=== PATIENT | female | born 1960 | race African-American/Black ===

== ENCOUNTER → 2016-11-16 | Outpatient (CLI) | payer MEDICARE, BC ==
[~2016-11-16] MED LIST: ACET250T22 PO; [UNRECOGNIZED DRUG - REMARK]
--- NOTE | 2016-11-17 02:31 | HKNOTE ---
DATE OF SERVICE: 11/16/2016 Patient is scheduled to have a right knee replacement on the . She comes in for 2 reasons, 1 to further discuss knee replacement and secondly to get a new prescription for Gary. Considerable time was spent with her discussing the knee replacement and what is involved. The patient was given my manual titled "Arthritis of the Knee Joint" which contains information conc erning the various alternatives of treatment. It includes various forms of conservative treatment, i ncluding the use of nonsteroidal anti-inflammatory medications and their dangers. Various surgical a lternatives are discussed. The technique of total knee replacement is discussed in detail, including possible complications. Included also is a section on the possible complications of blood transfusi on, a section on postoperative precautions, and an exercise program to follow at home after total kn ee replacement. The long-term care of a total knee replacement implant is also covered in detail. Lyndsey e patient was instructed to read this manual in its entirety since it is, in and of itself, a form o f informed consent. After reading this manual, the patient will make a list of further questions torres t may not have been covered adequately. The patient was further advised that this manual, although e xhaustive in nature, is only intended to supplement and complement a one-on-one discussion with me. My dietitian assistant, Neftaly, also came and spent considerable time with her dealing with her schedule. I note that she had arthroscopic surgery on the knee, which was of no help to her whatsoever. X-rays of her knee were reviewed. Remarkably, they still show some space between the surfaces of e bone. However, the findings at arthroscopic surgery showed "arthroscopic areas of all 3 compartme nts of the knee, leaving underlying subchondral bone exposed. Unstable articular cartilage of the l ateral femoral condyle in the weightbearing surface. The patellofemoral joint showed grade II to gr katheryn III degenerative changes. The medial meniscus showed degenerative fraying along its entire age. It was noted that this patient will be a candidate for knee replacement sometime in the near future ." After she had been allowed to ask all the questions she wanted, she departed and is already on the s chedule for her surgery. She will be seen at her preoperative visit. Dictated By: ROSETTA HEADLEY/ELOISE Conf#: [id number] [facility]#: [id number]
== END | disposition home or self-care (01) ==
LOC: HKI 13:40
DX: Z01.818 Encounter for other preprocedural examination (principal)
CPT/HCPCS: G0463

== ENCOUNTER 2016-12-07 07:00 | Inpatient (IN) | payer MEDICARE, BC ==
[~2016-12-07] VITALS: Ht 157.5 cm; Wt 109.8 kg
[2016-12-14 14:14] VITALS: BMI 39.1
[2016-12-15] VITALS (25 sets, daily range): BP systolic 127–146; BP diastolic 60–76; PULSE 60–96; RESP 11–20; Ht 157.5 cm; Wt 109.8 kg
--- NOTE | 2016-12-15 03:26 | PREOPHP ---
DATE OF ADMISSION: 12/15/2016 CHIEF COMPLAINT: Pain in the right knee, duration several years. HISTORY OF PRESENT ILLNESS: This patient had pain in her right knee for many years. In February of 2012 she had arthroscopic surgery for torn right medial meniscus. For a while she had some relief of he r pain, but then her pain recurred. The patient was referred to Dr. Valladares several weeks ago af ter an MRI revealed tearing of both the medial and lateral menisci of the right knee. Dr. Sue dickerson felt that the patient needed a right total knee replacement. The patient is accordingly being adm itted at this time for total right knee replacement. MRI of the knee performed 06/03/2016 revealed ____ tearing of the body and posterior horn of the medial meniscus and also showed low grade chondra l fissuring at the inner aspect of the lateral tibial plateau and the central trochlea. The patient is accordingly being admitted at this time for total right knee replacement by Dr. Valladares. FAMILY HISTORY: Mother is alive at age 88. Mother had breast cancer. She had some kidney troublin g and is on dialysis. Father at age 86 from cancer of the prostate. The patient had 10 brothe rs; 7 are alive and well, 3 , 1 of a cerebral aneurysm, another of unknown causes, but he had seizures and alcoholism. A third of a heart attack. The patient has 3 sisters; 2 are alive and well, 1 is . The one who , of liver cancer. Family history of carcinoma in the family. Mother had breast cancer. Father had prostate cancer. Sister had liver cancer. One b dimitrioser had cancer of his ____. No family history of tuberculosis. No family history of diabetes me llitus. SOCIAL HISTORY: The patient does not smoke. She does not use alcoholic beverages. SERIOUS ACCIDENTS: In 2010, she fell down at work when she was hit by a sliding door on her right w rist. She sustained a sprain of the right wrist and injured her lumbar spine. SERIOUS ILLNESSES: Sleep apnea for many years. PREVIOUS SURGERIES: Hammertoe surgery for correction of the right fifth toe hammertoe. In 1979 she had a benign tumor removed from her right breast. In February of 2012, she had arthroscopic surgery on her right knee for a torn medial meniscus. CURRENT MEDICATIONS: List is as follows: She takes Vitamin D spray, 5 sprays daily. No other medi cation on a regular basis. ALLERGIES: NO KNOWN ALLERGIES. REVIEW OF SYSTEMS: CARDIOVASCULAR: No history of hypertension. No history of congenital heart disease, rheumatic feve r, or other heart disease, arrhythmia, coronary insufficiency, myocardial infarction, or angina pect jann. RESPIRATORY: No history of asthma, tuberculosis, or pneumonia. GASTROINTESTINAL: No history of peptic ulcer disease, cholecystitis, hepatitis, jaundice, pancreati tis, ileitis, colitis, hematemesis, or melena. MUSCULOSKELETAL: Pain in her right knee for many years. The patient had arthroscopic surgery on he r right knee for torn right medial meniscus in February of 2012. NEUROLOGICAL: No history of epilepsy, convulsion, or CVA. No history of emotional disorder. GENITOURINARY: No history of cystitis, glomerulonephritis, pyelonephritis, or other genital tract d isorder. PHYSICAL EXAMINATION: GENERAL: The patient is an obese, terra female who does not appear acutely or chronically ill. VITAL SIGNS: Blood pressure 134/82, pulse 84, respirations 16, temperature 98.6. SKIN: No evidence of dermatitis. NECK: Supple. Thyroid is not palpable. EYES: PERRLA, EOM normal. Disks flat. Peripheral and forward vision grossly intact. EARS, NOSE, AND THROAT: Clear. HEART: PMI left fifth interspace, left midclavicular line. No murmurs, no thrills, no bruits. A2 is greater than P2. No distended jugular veins. No ankle edema. Hepatojugular reflux is not prese nt. LUNGS: Clear to A and P. ABDOMEN: Liver, kidneys, spleen are not palpable by. Bowel sounds are normal. There are no intraa bdominal masses or bruits. GENITOURINARY: Normal external female genitalia. PELVIC: Deferred. The patient had pelvic examination 6 months ago with normal result. RECTAL: Deferred for the same reason. MUSCULOSKELETAL: Pain and swelling of the right knee with decreased motion. There was crepitus on flexion of the right knee. NEUROLOGIC: DTRs are normal and equal bilaterally including biceps, triceps, wrists, knees, and ank les. Plantars are flexor, and no pathological reflexes are present. The patient is well oriented a s to time, place, and person. PERIPHERAL VASCULAR: No carotid or subclavian artery bruits. Femoral and dorsal pedal pulses are n ormal and equal bilaterally. IMPRESSION: Torn right medial meniscus, osteoarthritis, history of anemia, elevated sedimentation r ate elevated creatinine urinary stress incontinence. Dictated By: FLORENTINO TAYLOR/ELOISE Conf#: [id number] DID#: [id number]
[2016-12-15] MEDS ORDERED: DEXAMETHASONE 4 MG/ML 1 ML INJ IV ONE (06:00)
[2016-12-15] MEDS ORDERED: LACTATED RINGER'S 1,000 ML IV* SCH (06:00)
[2016-12-15] MEDS ORDERED: CELECOXIB 200 MG CAP PO ONE (06:00)
[2016-12-15] MEDS ORDERED: ONDANSETRON 4 MG INJ IV ONE (06:00)
[2016-12-15] MEDS ORDERED: SOD CHLORIDE 0.9% IVPB ONE ×3 (06:00→18:00)
[2016-12-15] MEDS ORDERED: VANCOMYCIN 1 GM (PMX) 250 ML IVPB ONE (06:00)
[2016-12-15] MEDS ORDERED: LANSOPRAZOLE 30 MG CAP PO ONE (06:00)
[2016-12-15] MEDS ORDERED: TRANEXAMIC ACID IVPB ONE ×3 (06:00→18:00)
[2016-12-15] MEDS ORDERED: oxyCODONE (CR) 10 MG TAB [oxyCONTIN] PO ONE (06:00)
[2016-12-15] MEDS ORDERED: ACETAMINOPHEN 1000MG/100ML IV 100 ML IVPB ONE (06:00)
[2016-12-15] MEDS ORDERED: NEOSTIGMINE 3 MG/3 ML SYRINGE ONE (06:19)
[2016-12-15] MEDS ORDERED: PROPOFOL 20 ML ONE (06:19)
[2016-12-15] MEDS ORDERED: MIDAZOLAM 1 MG/ML 2 ML INJ ONE (06:19)
[2016-12-15] MEDS ORDERED: FENTAnyl 50 MCG/ML VIAL ONE ×2 (06:19→10:11)
[2016-12-15] MEDS ORDERED: GLYCOPYRROLATE 0.4 MG INJ ONE (06:19)
[2016-12-15] MEDS ORDERED: LIDOCAINE 2% (SDV) 5 ML INJ ONE (06:19)
[2016-12-15] MEDS ORDERED: ROCURONIUM 50 MG INJ ONE (06:19)
[2016-12-15] MEDS ORDERED: DEXAMETHASONE 4 MG/ML 1 ML INJ ONE (06:26)
[2016-12-15] MEDS ORDERED: ONDANSETRON 4 MG INJ ONE (06:26)
[2016-12-15] MEDS ORDERED: LIDOCAINE 2%/EPI 30 ML INJ ONE (06:27)
[2016-12-15] MEDS ORDERED: BACITRACIN 50000 UNITS INJ ONE (06:39)
[2016-12-15] MEDS ORDERED: ROPIVACAINE 0.2% 100 ML ONE (06:52)
[2016-12-15] MEDS ORDERED: BUPIVACAINE 0.25%/EPI (SDV) 30 ML INJ ONE (06:52)
[2016-12-15] MEDS ORDERED: METHYLENE BLUE 10 MG/ML VIAL ONE (06:52)
[2016-12-15] MEDS ORDERED: POLYMYXIN B 500000 UNIT INJ ONE (06:52)
--- NOTE | 2016-12-15 06:52 | HPN ---
Date/Time of Note Date/Time of Note DATE: 12/15/16 TIME: 06:52 Interval H&P Admission Note Pt. seen H&P reviewed: No system changes YANI BENITEZ PA-C Dec 15, 2016 06:52
[2016-12-15] MEDS ORDERED: VANCOMYCIN 1 GM INJ ONE (06:53)
[2016-12-15] MEDS ORDERED: TOBRAMYCIN 1.2 GM POWDER ONE (06:53)
[2016-12-15] MEDS ORDERED: EPHEDrine SULFATE 50 MG/5 ML SYG IV PRN (07:00)
[2016-12-15] MEDS ORDERED: SUCCINYLCHOLINE CHLORIDE 100 MG/5 ML SYG IV ONE (07:00)
[2016-12-15] MEDS ORDERED: FENTAnyl 50 MCG/ML VIAL IV PRN ×2 (07:00)
[2016-12-15] MEDS ORDERED: morphine (1 MG/ML) 10ML SYRINGE IV PRN ×3 (07:00)
[2016-12-15] MEDS ORDERED: MIDAZOLAM 1 MG/ML 2 ML INJ IV PRN (07:00)
[2016-12-15] MEDS ORDERED: ATROPINE 1 MG/10 ML SYRINGE IV PRN (07:00)
[2016-12-15] MEDS ORDERED: DIPHENHYDRAMINE 50 MG INJ IV PRN (07:00)
[2016-12-15] MEDS ORDERED: LABETALOL HCL 20MG INJ IV PRN (07:00)
[2016-12-15] MEDS ORDERED: hydrALAzine 20 MG INJ IV PRN (07:00)
[2016-12-15] MEDS ORDERED: OXYCODONE/ACETAMINOPHEN (5/325) TAB PO PRN ×2 (07:00)
[2016-12-15] MEDS ORDERED: ONDANSETRON 4 MG INJ IV PRN (07:00)
[2016-12-15] MEDS ORDERED: HYDROmorphONE (0.2 MG/ML) 10ML SYG IV PRN ×3 (07:00)
[2016-12-15] MEDS ORDERED: MEPERIDINE 25 MG INJ IV PRN (07:00)
[2016-12-15] MEDS ORDERED: SOD CHLORIDE 0.9% IRR SCH ×2 (07:30)
[2016-12-15] MEDS ORDERED: TRANEXAMIC ACID IRR SCH ×2 (07:30)
[2016-12-15] MEDS ORDERED: hydrALAzine 20 MG INJ ONE (07:55)
[2016-12-15] MEDS ORDERED: LABETALOL HCL 20MG INJ ONE (07:57)
[2016-12-15] MEDS ORDERED: ROPIVACAINE 0.2% 100ML BAG INJ ONE (09:04)
--- NOTE | 2016-12-15 09:28 | RADRPT ---
PROCEDURE: Right knee x-ray. CLINICAL INDICATION: Intraoperative localization for knee replacement procedure. TECHNIQUE: 3 images obtained intraoperatively during a knee prosthesis placement procedure. COMPARISON: None available FINDINGS: 3 images were obtained intraoperatively for localization during a knee prosthesis placement procedur e. The procedure was performed by Dr. Valladares; . Images were obtained for localization intraope ratively. 7.8 seconds of fluoroscopy time was used. Surgical hardware is seen in place. No fracture is identified. IMPRESSION: 3 images and 728 seconds of fluoroscopy were used during a right total knee replacement Surgical hardware is in place. No fracture identified RPTAT:HGDB .Tex Day MD, Date Time Electronically viewed and signed by .Tex Day MD, on 12/15/2016 09:28 .B/
[2016-12-15] MEDS ORDERED: FUROSEMIDE 20 MG INJ ONE (11:05)
[2016-12-15] MEDS ORDERED: FLUMAZENIL 0.5 MG INJ ONE (11:54)
[2016-12-15] MEDS ORDERED: ZOLPIDEM 5 MG TAB PO PRN (12:30)
[2016-12-15] MEDS ORDERED: oxyCODONE 5 MG TAB PO PRN ×3 (12:30)
[2016-12-15] MEDS ORDERED: NALOXONE (0.4 MG/ML) INJ IV PRN (12:30)
[2016-12-15] MEDS ORDERED: SENNA/DOCUSATE NA (8.6MG/50MG) TAB PO PRN (12:30)
[2016-12-15] MEDS ORDERED: DOCUSATE SODIUM 100 MG CAP PO ONE (12:30)
[2016-12-15] MEDS ORDERED: BISACODYL 10 MG SUPP PR PRN (12:30)
[2016-12-15] MEDS ORDERED: BETHANECHOL 25 MG TAB PO PRN (12:30)
[2016-12-15] MEDS ORDERED: MAGNESIUM HYDROXIDE 30ML CUP PO PRN (12:30)
[2016-12-15] MEDS ORDERED: DIPHENHYDRAMINE 50 MG INJ IM PRN (12:30)
[2016-12-15] MEDS ORDERED: MEPERIDINE 10 MG/ML 30 ML PCA IV PRN (12:30)
[2016-12-15] MEDS ORDERED: COUMADIN NOTE XX SCH (12:30)
[2016-12-15] MEDS ORDERED: HYDROmorphONE 0.2 MG/ML PCA IV PRN (12:30)
[2016-12-15] MEDS ORDERED: NA PHOSPHATE/BIPHOS 133 ML ENEMA PR PRN (12:30)
[2016-12-15] MEDS ORDERED: ASPIRIN (EC) 325 MG TAB PO ONE (12:30)
[2016-12-15] MEDS: ACETAMINOPHEN 1000MG/100ML IV 100 ML IVPB SCH ×2 (12:38→20:33)
[2016-12-15] MEDS: CEFAZOLIN 1 GM/50 ML (PMX) 50 ML IVPB SCH ×2 (12:39→20:46)
--- NOTE | 2016-12-15 12:43 | RADRPT ---
PROCEDURE: Right knee x-ray. CLINICAL INDICATION: Intraoperative localization for knee replacement procedure. TECHNIQUE: 2 lateral images obtained intraoperatively during a knee prosthesis placement procedure . COMPARISON: None available FINDINGS: To the lateral images obtained intraoperatively for localization during a knee prosthesis placement procedure. The procedure was performed by Dr. Valladares; images were obtained for localization int raoperatively. Surgical hardware is seen in place. IMPRESSION: 2 lateral images obtained intraoperatively for localization during total knee replacement. Surgical hardware in place. No fracture identified RPTAT:HGDB .Tex Day MD, MD Date Time Electronically viewed and signed by .Tex Day MD, on 12/15/2016 12:42 .B/
--- NOTE | 2016-12-15 12:51 | RADRPT ---
PROCEDURE: XR right knee. CLINICAL INDICATION: Knee replacement. TECHNIQUE: AP and lateral views are available for review. COMPARISON: No comparison available FINDINGS: There is a postoperative constrained total knee replacement. There is no evidence of loosening of th e prosthesis. The osseous structures are normal in mineralization, architecture and alignment No acu te fracture or dislocation is seen.No osseous lesions are identified. There are postoperative soft tissue changes. [address] . IMPRESSION: Unremarkable postoperative constrained total knee replacement. Postoperative soft tissue changes RPTAT: HGDB .Tex Day MD, MD Date Time Electronically viewed and signed by .Tex Day MD, MD on 12/15/2016 12:50 .B/
--- NOTE | 2016-12-15 12:59 | OPR ---
DATE OF OPERATION: 12/15/2016 SURGEON: Martin Valladares MD RAW HIDE TRIMMER: ARMANDO Rockwell ANESTHESIOLOGIST: Dr. Wu PREOPERATIVE DIAGNOSIS: Exceedingly severe degenerative osteoarthritis of the right knee. POSTOPERATIVE DIAGNOSIS: Exceedingly severe degenerative osteoarthritis of the right knee. OPERATION PERFORMED: Total knee replacement (arthroplasty of the knee, condylar plateau medial and lateral compartments with patella resurfacing, CPT 03677). FINDINGS AT SURGERY: The patient was found to have extremely severe arthritis affecting all 3 waylon rtments of the knee, but most severely the medial and lateral compartments. The patellofemoral comp artment was not quite as severely affected. There was no normal appearing articular cartilage in e knee. JUSTIFICATION FOR SURGERY: The knee was found to have end-stage osteoarthritis. The patient is a v andrei active 56-year-old female whose lifestyle is markedly affected by the arthritic knee. An extens jami course of conservative care has been tried prior to embarking on the knee replacement operation. There can be no reasonable expectation that any further conservative treatment will make any impro vement to this patient's pain level and lifestyle. The risks and complications of the surgery were discussed with the patient at the preoperative visit as well as the risks and possible complications of blood transfusion using hospital blood. The patient is agreeable to using hospital blood if nee ded. DESCRIPTION OF PROCEDURE: The patient was given intravenous antibiotics 1 hour prior to surgery. A n epidural anesthetic was initiated in the ICU holding area. The patient was taken to the operating room and given a light general anesthetic. The leg, foot, and ankle were prepared and draped in e usual sterile fashion. The center of the ankle was marked at the midpoint between the 2 malleoli with a sterile marking pen. A tourniquet around the thigh was inflated to 300 mmHg after the leg lyon d been exsanguinated using an Esmarch bandage. The tourniquet was inflated at the initiation of pro cedure for a short period and was then again reinflated at the time of cementing the components part s. The total tourniquet time was 56 minutes. The tourniquet was intermittently inflated. The pres sure had to be raised to 300, and at times to 350 because of the thickness of her thigh. The patien t is markedly obese. A longitudinal incision was made over the anterior aspect of the knee. The incision extended from t he tibial tubercle to a point just above the patella. The medial capsule was exposed by sharp and b rory dissection, and was incised 1/4 inch medial to the patella. A marking stitch was set on each s lucrecia of the incision at the midpoint of the capsule so as to enable accurate reapproximation at the e nd of the operation. A vastus split was made in the vastus medialis extending from the superior cherise e of the patella for approximately 5 cm between the line with the muscle fibers. The ends of the mu scle split at the patella were marked with a marking stitch on each side for later accurate reapprox imation. The patella was reflected laterally and osteophytes around the rim of the patella were rem adán. Osteophytes along the lateral femoral condyle were removed so as to facilitate lateral reflec tion of the patella. Posteromedial osteophytes were removed on the lateral side as well, so as to f ree up the lateral collateral ligament. Medial femoral osteophytes and posteromedial femoral osteop hytes were also removed at this time. This allowed for the knee to be brought into a more normal al ignment. A segment of bone was cut from the articular surface of the patella using a caliper to det ermine the exact thickness to be removed. The remaining thickness of the patella was 17 mm. The kn ee was flexed, and the patella was displaced laterally without eversion. Osteophytes in the femoral notch were removed. The remnants of the medial and lateral menisci were excised and the cruciate l igaments were excised. The medial collateral ligament was elevated as an osteo-periosteal flap from the proximal tibia. The distal end of the medial collateral ligament remained attached to the tibi a throughout the operation. The tibia was retracted forward with Hohmann retractor, inserted fruit shipper ior to the midpoint of the proximal tibia. The tibial jig was set in place in such a way as to alig n longitudinally with the anterior tibial spine, with the junction of the middle and medial 2/3 of t he patella tendon, and with the posterior intercondylar eminence of the tibia. An AP and lateral x- ray was obtained with the alignment jig in place. This showed that the alignment was satisfactory a fter some slight adjustments were made. The posterior slope of the tibia was set at 6 degrees. The tibial cutting block was attached to the proximal tibia with 2 Steinmann pins. An external alignme nt josé was placed on the cutting block to confirm the alignment of the cutting block. An Joshua Wing feeler gauge was now placed on the superior aspect of the cutting block to further confirm the post erior slope of the tibia and the depth of the cut to be made. An oscillating saw was used to remove an appropriate amount of bone from the proximal tibia with the healthy side being used to measure t he cutting depth. The lateral femoral condyle of the distal femur was measured to determine the ling ropriate size for the femoral component. The anterior condyle of the femur was partially removed wi th a rongeur. A medium-sized cutting block was attached to the distal femur with 2 Steinmann pins t hrough the pin holes in the block. The external alignment jig of this cutting block was lined up wi th the anterior surface of the femur and a central intercondylar hole for the intramedullary josé was drilled through the hole in the alignment block. The block was removed. A long Waterpik nozzle wa s used to flush fat from the intramedullary canal. The appropriately sized cutting block was now at tached to the femur by means of an intramedullary josé. The linking guide was inserted into the slot in the base of the femoral cutting block with the knee set at 90 degrees of flexion and with the li nking guide set flush with the proximal tibial cut in order to set the appropriate rotational alignm ent on the femoral cutting block. Ligament balance was checked at this point and was found to be ve ry satisfactory. Once the rotational alignment had been determined, and the ligaments found to be b alanced, the femoral cutting block was secured to the distal femur with 2 Steinmann pins. The anter ior and posterior cuts of the distal femur were made off the femoral cutting block. The cutting blo ck was removed and a spacer block was used to measure the flexion gap which was found to be 12.5 mm. The same spacer block size without the femoral element was used with the leg in extension to determi ne the amount of distal femur to be removed in the transverse plane. A ____-degree distal cutting b lock was now set on the femoral intramedullary josé, and the josé was inserted into the intramedullary canal. The appropriate amount of bone to be removed was determined. The femoral cutting block was pinned to the anterior surface of the femur with 2 Steinmann pins. The appropriate amount of bone was resected off the distal femur to give an extension gap equal to the thickness of the flexion gap . The cut needed to be repeated after initial cut in order to produce an extension gap the same siz e as the flexion gap. By using the appropriate cutting blocks, the rest of the femoral cuts were made. The femoral trial component was installed and was found to fit perfectly. The femoral trial component was removed. T he proximal tibia was sized, and the appropriate tibial tray selected. The central fixation hole in the tibia was made using the tibial tray template and the appropriate instruments. The femoral and tibial trials and the trial tibial insert were installed, and the patella was prepared to accept th e 2 mm patellar trial. The trial components were all removed. The tourniquet was inflated. Soft t issues around the knee, especially the posterior capsule, were injected with a mixture of Naropin, T oradol, morphine, and clonidine. The cut surfaces of the bones were cleaned with pulsatile Water Je t lavage and thoroughly dried. Sclerotic bone surfaces were drilled with a 1/8-inch drill. The tib ial trial component was installed with methyl methacrylate cement followed by the femoral component and finally the patellar component. Cement was used on all 3 components. The cement was finger pac ked into the cut surfaces of the bone and pressurized with a rubber dam in order to get good interdi gitation of the cement into the bone. A lateral x-ray of the knee was obtained while the cement was hardening with the anticipated appropriate trial spacer in place, which was 12.5 mm. However, the x -ray showed that the knee was in slight hypertension. Once the cement was hard, we installed the 15 mm trial, which seemed to give the appropriate amount of extension and improved the amount of tensi on in all the ligaments and had good range of motion. The cut edges of the medial capsule were held together at the midpoint with a towel clip, and the knee was put through a full range of motion. T he patella was found to track satisfactorily. A lateral release was not required. At this point, t he patella was found to track very well in the patellar groove of the femoral component. The knee was frequently irrigated with normal saline containing antibiotics with pulsatile lavage th roughout the entire operation as a prophylactic measure against infection. Once the cement was hard , the tourniquet was released. Bleeding points were cauterized. The total tourniquet time was 56 m inutes. The patient's vital signs remained stable throughout the operation. The permanent rotating bearing was installed. Superficial and deep Hemovac drains were set in place . The wound was closed using interrupted Vicryl on the capsule with FiberWire used at strategic poi nts such as the attachment of the distal ends of the vastus medialis at the split, and the tibial te ndon was also attached to the osteo-periosteal flap with FiberWire. The rest of the medial capsule was closed with interrupted Vicryl. A subcuticular stitch was inserted and alexandr were used on the skin. The usual sterile dressings were applied. A Roland-Chandler compression dressing was applied a fter a sterile cooling pad had been set in place against the deep tissues by sterile cast padding. The patient's condition at the end of the procedure was satisfactory. Vital signs remained stable t hroughout the operation. The patient returned to the recovery room in stable condition. X-rays wer e obtained in the recovery room. Calf pumps were applied to both legs in the operating room. There were no problems or complications as far as we know. The sponge and instrument counts were correct . COMPONENT INFORMATION: KNEE IMPLANT TYPE: LCS. FEMORAL COMPONENT SIZE: Medium. TIBIAL COMPONENT SIZE: 2.5 PATELLAR COMPONENT SIZE: 32 mm dome. TIBIAL INSERT: 15 mm posterior stabilized mobile bearing. 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 TOTAL TOURNIQUET TIME: 56 minutes. TOTAL BLOOD LOSS: Possibly 150 to 250 mL. Dictated By: MARTIN HEADLEY/ELOISE Conf#: [id number] DID#: [id number]
[2016-12-15] MEDS ORDERED: KNEE PAIN COCKTAIL VANCO INJ SCH ×6 (15:00)
[2016-12-15] MEDS: ONDANSETRON 4 MG INJ IV SCH ×2 (16:02→18:04)
[2016-12-15] MEDS: DEXTROSE 5%-LR 1,000 ML IV SCH (16:02)
[2016-12-16] MEDS: ONDANSETRON 4 MG INJ IV SCH ×2 (00:20→06:28)
[2016-12-16 00:28] VITALS: BP 130/62; RESP 20
[2016-12-16] MEDS: DEXTROSE 5%-LR 1,000 ML IV SCH ×2 (00:46→13:16)
--- NOTE | 2016-12-16 02:16 | PN ---
DATE: 12/15/2016 SUBJECTIVE: The patient had a total right knee replacement today. The patient appears to be comfor table. OBJECTIVE: GENERAL: She is awake, oriented, and cooperative. LUNGS: Clear to A and P. HEART: Normal sinus rhythm. ABDOMEN: Liver, kidneys, spleen are not palpable. Bowel sounds are normal. The patient has not lyon d a bowel movement nor has she had flatus today yet. EXTREMITIES: No ankle edema on the left foot. The right knee has been bandaged. The dressings are dry. However, there are 2 drains, which are draining some blood. Feet are warm and dry bilaterall y. The patient moves her toes well bilaterally. LABORATORY DATA: Done preoperatively revealed slight anemia with hemoglobin of 11.2, hematocrit of 34.7%. Sed rate was elevated at 87 mm per hour. Albumin was 4 g/dL and globulin was 4.1 g/dL. Tri glycerides were slightly elevated at 173. ASSESSMENT AND PLAN: The patient doing well. To get a CBC and a basic metabolic panel in the [facility]. We will also order a serum protein electrophoresis for tomorrow. Dictated By: FLORENTINO JAVED MD WR/NTS Conf#: [id number] DID#: [id number] CC: ROSETTA MOY MD;*End*
[2016-12-16] MEDS: ACETAMINOPHEN 1000MG/100ML IV 100 ML IVPB SCH ×3 (04:26→20:38)
[2016-12-16 04:33] VITALS: BP 130/59; PULSE 80; RESP 18
[2016-12-16] MEDS: CEFAZOLIN 1 GM/50 ML (PMX) 50 ML IVPB SCH (05:26)
[2016-12-16 05:33] LABS: ADD SCAN DIFF NO
[2016-12-16 05:44] LABS: BASOPHILS % 0.1 % (0.0-2.0); HEMATOCRIT 28.3 % (37.0-47.0); LYMPHOCYTES % 7.7 % (15.0-51.0); MEAN CORPUSCULAR HEMOGLOBIN 28.1 pg (29.0-33.0); MEAN CORPUSCULAR HGB CONC 31.8 g/dl (32.0-37.0); MEAN CORPUSCULAR VOLUME 88.4 fl (82.0-101.0); MONOCYTE # 0.8 10^3/ul (0.3-0.9); MONOCYTES % 6.5 % (0.0-11.0); NEUTROPHIL # 10.7 10^3/ul (1.6-7.5); NEUTROPHILS % 85.3 % (39.0-77.0); PLATELET COUNT 206 10^3/UL (140-415); RED CELL DISTRIBUTION WIDTH 13.3 % (11.5-14.5); WHITE BLOOD COUNT 12.5 10^3/ul (4.8-10.8)
[2016-12-16] MEDS ORDERED: KETOROLAC 15 MG INJ INJ PRN (06:00)
[2016-12-16] MEDS ORDERED: BUPIVACAINE 0.25%/EPI (SDV) 30 ML INJ INJ PRN (06:00)
[2016-12-16 06:17] LABS: POTASSIUM 4.4 mmol/L (3.5-5.1)
[2016-12-16 06:20] LABS: CREATININE 0.85 mg/dl (0.44-1.00)
[2016-12-16 06:21] LABS: CALCIUM 8.8 mg/dl (8.4-10.2)
[2016-12-16] MEDS: DEXAMETHASONE 4 MG/ML 1 ML INJ IV SCH (06:28)
--- NOTE | 2016-12-16 08:11 | PN ---
Date/Time of Note Date/Time of Note DATE: 12/16/16 TIME: 08:08 Assessment/Plan VTE Prophylaxis VTE Prophylaxis Intervention: ambulation, SCD's, other Lines/Catheters IV Catheter Type (from Nrsg): Peripheral IV Shea in Place (from Nrsg): Yes Assessment/Plan Assessment/Plan -Hemovac Removed Today. 400 cc output -Pain Cocktail Given -Pain Meds as needed -Dress change performed today -OOB with PT -ASA/SCDs for DVT Prophylaxis -Continue monitoring with Internal Medicine -Patient Stable Subjective 24 Hr Interval Summary 56-year-old female postop day 1 status post right total knee replacement. Denies any pain complaints. Patient was up and walking with physical therapy yesterday. Assisted ambulation with front wheeled walker. Denies any calf pain , shortness of breath or chest pain. Patient doing well. Constitutional: no complaints Pain Control: well controlled Exam/Review of Systems Vital Signs Vitals Vital Signs Date Time Temp Pulse Resp B/P Pulse Ox O2 Delivery O2 Flow Rate FiO2 12/16/16 04:33 98.4 80 18 130/59 99 Room Air Intake and Output 12/15/16 12/15/16 12/16/16 15:00 23:00 07:00 Intake Total 652 ml 1310 ml Output Total 365 ml 620 ml 1160 ml Balance -365 ml 32 ml 150 ml Exam Free Text/Dictation -Hemovac: Intact -Pain Cocktail Drains: Intact -Incision: Clean, Dry and Intact without any redness or drainage -5/5 Tibialis Anterior, EHL Gastrocnemius/Soleus and Peroneals -5 lag from full extension and 80 active flexion. -Normal Sensation -Palpable DP/PT, Capillary Refill <2 secs -No Distal Edema -Negative Nikki Sign/No calf pain -Toes Freely Movable Results Result Diagram: 12/16/16 0450 12/16/16 0450 YANI BENITEZ PA-C Dec 16, 2016 08:10
--- NOTE | 2016-12-16 08:13 | PDOCDIS ---
Discharge Instructions DIAGNOSIS Discharge Diagnosis: Status post right total knee replacement CONDITION Patient Condition: Stable HOME CARE INSTRUCTIONS: Diet Instructions: Regular ACTIVITY: Activity Restrictions: Slowly Increase Activity Rest between Activity Avoid heavy lifting No Sexual Activity Do not Drive Do not operate Machinery Avoid Heavy Housework Keep Limb Elevated Weight Bearing (As tolerated and possibly with front wheeled walker if needed.) Bathing Restrictions: Shower (With Tegaderm dressing. Apply Tegaderm dressing prior to shower, make sure leg is completely dry before removing. Apply new Tegaderm each day until alexandr are removed around 10 days postop.) FOLLOW UP/APPOINTMENTS Appointments January 05, 2017 at 2:15PM YANI BENITEZ PA-C Dec 16, 2016 08:13
--- NOTE | 2016-12-16 08:16 | DS ---
Date/Time of Note Date/Time of Note DATE: 12/16/16 TIME: 08:14 Discharge Summary Admission/Discharge Info Admit Date/Time Dec 15, 2016 at 05:09 Discharge Date/Time December 17, 2016 Final Diagnosis Status post right total knee replacement. Patient Condition: Stable Hospital Course On the day of admission, the patient underwent right total knee replacement Intraoperative complications: None Postoperative complications: None The patient was given prophylactic antibiotics and anticoagulants. On the day of surgery and first postoperative day patient was started on gait training and was taught usual restrictions following knee replacement Suction drain removed on the first postoperative day and the dressings were changed. The wound was found to be clean and healing well. There was no sign of infection. Pain cocktail given. On the second postoperative day, patient continued with inpatient PT. Dressings were changed. Wound was found to be clean and healing well. No signs of infection. Pain cocktail given. On the day of discharge, the wound was clean and healing well; there was no sign of infection. The dressings were changed. Discharge Temperature: 98.2 Discharge White Blood Cell Count: 10.6 Discharge Hemoglobin: 9.2 The patient was discharged home with home health. Arrangements were made for visiting nurses and home health/physical therapy. The patient will be seen in office at scheduled postoperative evaluation date given on their preoperative exam which is January 05 at 2:15 PM. Should patient complain of any problems prior to scheduled postoperative evaluation date, they may call into outpatient clinic to determine if they need to be scheduled at sooner appointment to be seen immediately if needed. Discharge medications: As per medication reconciliation form Diet: Same as preadmission diet. This is Yani Deleon PA-C dictating discharge summary for Dr. Martin Valladares. Home Meds Reported Medications Acetazolamide* (Acetazolamide*) 250 Mg Tablet, 250 MG PO QID, #90 TAB 08/25/16 [meds for blister] No Conflict Check 03/10/15 Follow-up Plan January 05 2017 at 2:15 PM Pending Labs Laboratory Tests Test 12/16/16 04:50 Anion Gap 12 (8-16) Basophils # 0.010^3/ul (0.0-0.1) Basophils % 0.1% (0.0-2.0) Blood Urea Nitrogen 12mg/dl (7-20) Calcium Level 8.8mg/dl (8.4-10.2) Carbon Dioxide Level 30mmol/L (21-31) Chloride Level 105mmol/L (97-110) Creatinine 0.85mg/dl (0.44-1.00) Eosinophils # 0.010^3/ul (0.0-0.5) Eosinophils % 0.0% (0.0-7.0) Glucose Level 115mg/dl (70-220) Hematocrit 28.3% (37.0-47.0) Hemoglobin 9.0g/dl (12.0-16.0) Lymphocytes # 1.010^3/ul (0.8-2.9) Lymphocytes % 7.7% (15.0-51.0) Mean Corpuscular Hemoglobin 28.1pg (29.0-33.0) Mean Corpuscular Hemoglobin Concent 31.8g/dl (32.0-37.0) Mean Corpuscular Volume 88.4fl (82.0-101.0) Mean Platelet Volume 10.0fl (7.4-10.4) Monocytes # 0.810^3/ul (0.3-0.9) Monocytes % 6.5% (0.0-11.0) Neutrophils # 10.710^3/ul (1.6-7.5) Neutrophils % 85.3% (39.0-77.0) Nucleated Red Blood Cells # 0.010^3/ul (0.0-0.0) Nucleated Red Blood Cells % 0.0/100WBC (0.0-0.0) Platelet Count 48095^3/UL (140-415) Potassium Level 4.4mmol/L (3.5-5.1) Red Blood Count 3.2010^6/ul (4.20-5.40) Red Cell Distribution Width 13.3% (11.5-14.5) Sodium Level 143mmol/L (135-144) White Blood Count 12.510^3/ul (4.8-10.8) YANI BENITEZ PA-C Dec 16, 2016 08:16
[2016-12-16] MEDS: DOCUSATE SODIUM 100 MG CAP PO SCH ×2 (08:24→20:38)
[2016-12-16] MEDS: FERROUS FUMARATE (SR) TAB PO SCH ×2 (08:24→20:38)
[2016-12-16] MEDS: ASPIRIN (EC) 325 MG TAB PO SCH ×2 (08:24→20:38)
[2016-12-16] MEDS: CELECOXIB 200 MG CAP PO SCH ×2 (08:24→20:38)
[2016-12-16 08:31] VITALS: BP 123/59; RESP 18
[2016-12-16 19:54] VITALS: BP 127/60; RESP 20
[2016-12-17] MEDS: ACETAMINOPHEN 1000MG/100ML IV 100 ML IVPB SCH (04:32)
[2016-12-17 05:08] LABS: ADD SCAN DIFF NO
[2016-12-17 05:20] LABS: BASOPHILS % 0.2 % (0.0-2.0); EOSINOPHILS % 0.3 % (0.0-7.0); HEMATOCRIT 30.4 % (37.0-47.0); HEMOGLOBIN 9.2 g/dl (12.0-16.0); LYMPHOCYTES # 1.9 10^3/ul (0.8-2.9); LYMPHOCYTES % 18.1 % (15.0-51.0); MEAN CORPUSCULAR HEMOGLOBIN 27.5 pg (29.0-33.0); MEAN CORPUSCULAR HGB CONC 30.3 g/dl (32.0-37.0); MEAN CORPUSCULAR VOLUME 90.7 fl (82.0-101.0); MEAN PLATELET VOLUME 10.1 fl (7.4-10.4); MONOCYTE # 0.6 10^3/ul (0.3-0.9); NEUTROPHIL # 7.9 10^3/ul (1.6-7.5); PLATELET COUNT 198 10^3/UL (140-415); RED BLOOD COUNT 3.35 10^6/ul (4.20-5.40); RED CELL DISTRIBUTION WIDTH 13.6 % (11.5-14.5); WHITE BLOOD COUNT 10.6 10^3/ul (4.8-10.8)
[2016-12-17] MEDS ORDERED: PANTOPRAZOLE (EC) 40 MG TAB PO SCH (06:00)
[2016-12-17 06:16] LABS: POTASSIUM 3.8 mmol/L (3.5-5.1)
[2016-12-17] MEDS: DEXAMETHASONE 4 MG/ML 1 ML INJ IV SCH (06:19)
--- NOTE | 2016-12-17 07:54 | PN ---
DATE: 12/16/2016 This is postoperative day #1. The patient is afebrile. Hemoglobin is 9.0 gram percent, hematocrit is 28.3. The patient is taking , 1 twice a day. GENERAL: Patient is awake. She is comfortable. She is rational. HEART: Normal sinus rhythm. No murmurs. CHEST: Clear to A and P. ABDOMEN: Liver, kidneys, spleen are not palpable. Bowel sounds are decreased. EXTREMITIES: The patient still had not passed any flatus. Right leg is bandaged. The bandage is d ry. The drains are still draining some blood. Left leg is normal. The patient is doing very well. Patient ambulated today. Get a CBC and a basic metabolic panel tod ay. Dictated By: FLORENTINO TAYLOR/ELOISE Conf#: [id number] DID#: [id number]
[2016-12-17 08:00] VITALS: BP 117/58; RESP 18
--- NOTE | 2016-12-17 08:42 | PN ---
Date/Time of Note Date/Time of Note DATE: 12/17/16 TIME: 08:40 Assessment/Plan Lines/Catheters IV Catheter Type (from Nrsg): [place] Shea in Place (from Nrsg): Yes Assessment/Plan Assessment/Plan POD # 2. Doing well. -D/C to home -Pain meds -Home PT -ASA/SCDs -F/u with Dr. Valladares in 1 week Subjective 24 Hr Interval Summary Resting comfortably. Minimal pain. Exam/Review of Systems Vital Signs Vitals Vital Signs Date Time Temp Pulse Resp B/P Pulse Ox O2 Delivery O2 Flow Rate FiO2 12/17/16 08:00 98.2 67 18 117/58 98 12/16/16 04:33 Room Air Intake and Output 12/16/16 12/16/16 12/17/16 15:00 23:00 07:00 Intake Total 300 ml 900 ml 800 ml Output Total 800 ml 900 ml Balance 300 ml 100 ml -100 ml Exam Free Text/Dictation Dressing dry Incision clean, dry, and intact without redness or drainage 5/5 Tibialis Anterior, EHL, Gastroc Soleus, Peroneals Normal sensation Palpable DP/PT, CR < 2 Sec No distal edema Results Result Diagram: 12/17/1643912/17/16439 MIKE GODFREY MD Dec 17, 2016 08:42
[2016-12-17] MEDS: DOCUSATE SODIUM 100 MG CAP PO SCH (09:24)
[2016-12-17] MEDS: CELECOXIB 200 MG CAP PO SCH (09:24)
[2016-12-17] MEDS: ASPIRIN (EC) 325 MG TAB PO SCH (09:24)
[2016-12-17] MEDS: FERROUS FUMARATE (SR) TAB PO SCH (09:24)
== END 2016-12-17 15:45 | disposition home health service (06) | DRG 470 ==
LOC: REC 12-15 05:09 → MS1 12-15 14:15
PROC: 0SRC0J9 Replacement of Right Knee Joint with Synthetic Substitute, Cemented, Open Approach (ICD-10-PCS; principal; 2016-12-15 07:30)
DX: M17.11 Unilateral primary osteoarthritis, right knee (principal); Z68.41 Body mass index [BMI] 40.0-44.9, adult; D64.9 Anemia, unspecified; E66.01 Morbid (severe) obesity due to excess calories
CPT/HCPCS: 73560; 73562; 80048; 85025; 86850; 86900; 86901; 86920; 87081; 87086; 88304; 88311; 97110; 97116; 97163; 97167; 97530; J1940; C1776; J0131; J0330; J0360; J0690; J0735; J1100; J1170; J1885; J2250; J2274; J2405; J2710; J2795; J3010; J3370; J7120; J7121

== ENCOUNTER → 2016-12-14 | Outpatient (CLI) | payer MEDICARE, BC ==
--- NOTE | 2016-12-14 20:27 | HKNOTE ---
DATE OF SERVICE: 12/14/2016 Patient comes in for preoperative evaluation. She is scheduled to have a right total knee replaceme nt on 12/15/2016. She has been cleared for surgery by Dr. Ismael Nye. The patient has not gi michell any blood for autotransfusion. She understands the risks associated with using hospital blood. She is agreeable to using hospital blood if needed. Numerous questions were asked and answered. S he read my booklet on knee arthritis and knee replacement surgery. Dictated By: ROSETTA HEADLEY/NTS Conf#: [id number] DID#: [id number]
== END | disposition home or self-care (01) ==
LOC: HKI 13:24
DX: Z01.818 Encounter for other preprocedural examination (principal)
CPT/HCPCS: G0463

== ENCOUNTER → 2017-01-05 | Outpatient (CLI) | payer BC, MEDICARE ==
--- NOTE | 2017-01-05 14:41 | PN ---
Date/Time of Note Date/Time of Note DATE: 01/05/17 TIME: 14:36 Outpatient Progress Note Chief Complaint 3 week postop status post right total knee replacement on 12/15/2016. HPI 56-year-old female presents today for three-week postoperative examination status post right total knee arthroplasty on 12/15/2016. In regards to functionality, patient states that she has significantly improved and is very happy after surgery. She is no longer using front wheeled walker. She does use single-point cane for assisted ambulation at times. She is able to climb up and down stairs. She states that she has been very active. On average, she walks about 1 block a day and is also going up and down stairs a couple times a day for activity. She does state however, that she experiences about 5/10 pain during the day and about 8/10 pain during the night at rest. She is taking [place] 10/325 mg as needed for pain which helps control her pain complaints. Denies any calf pain, shortness of breath, chest pain/tightness. Continues with DVT prophylaxis using aspirin 325 mg. Review of Systems Const: No Fever, no chills, no Fatigue, normal appetite, no diaphoresis. Resp: No SOB, no wheezing, no chest pain. CV: No chest pain, no palpitaions, no RODRIGUEZ. Physical Exam Blood pressure is 124/61, pulse is 83, temperature is 98.2, height is 5 foot 2 inches, respiratory rate is 12, weight 220 pounds. General Appearance: well-developed, well-nourished, in no acute distress. Right knee: Slight limp with gait. Able to walk independently but patient likes to carry her single-point cane if she feels that the knee is weak. No tenderness to palpation on exam today. About 5 lag from full extension. Patient is able to actively flex the right knee up to 110. Passive flexion reveals range of motion up to 120. Discomfort at 120. Negative Homans sign. Wound site is clean dry and intact and healing well. No signs of infection. Allergies Coded Allergies: No Known Allergies (Verified Allergy, Mild, 08/25/16) Assessment/Plan -Wound healing well after staple removal. No signs of infection. -Continue ASA 325 mg twice daily for DVT prophylaxis until 6 weeks status post surgery. -No signs of DVT. -Patient progressing well. -Prescription for [place] 10/325 mg #40 tablets provided today for as needed use for severe pain. -Follow-up at 6 week postop appointment. X-rays will be performed at 6 weeks postoperative appointment. -Patient made aware that they may follow-up sooner, should they experience any issues or complications as we will be glad to see them. -Order for outpatient physical therapy given today with focus on improved range of motion. Antibiotic card provided for patient. Patient made aware that dental prophylaxis will be necessary prior to any dental procedure for the remainder of their lifetime. Patient is aware that they must contact their dentist prior to any procedure to inform them of previous joint replacement with prosthesis implant so appropriate antibiotic may be prescribed to lower risk of joint infection status post surgery. Card will also serve as confirmation should patient be traveling and have to go through security such as at an airport. Patient seen with Dr. Valladares today. Agrees with plan. Medications Home Meds Reported Medications Acetazolamide* (Acetazolamide*) 250 Mg Tablet, 250 MG PO QID, #90 TAB 08/25/16 [meds for blister] No Conflict Check 03/10/15 YANI BENIETZ PA-C Jan 05, 2017 14:41
== END | disposition home or self-care (01) ==
LOC: HKI 13:17
DX: Z47.1 Aftercare following joint replacement surgery (principal); Z96.651 Presence of right artificial knee joint

== ENCOUNTER → 2017-02-01 | Outpatient (CLI) | payer BC, MEDICARE ==
--- NOTE | 2017-02-01 15:05 | PN ---
Date/Time of Note Date/Time of Note DATE: 02/01/17 TIME: 15:02 Outpatient Progress Note Chief Complaint 6 week postop appointment status post right total knee replacement. HPI 56-year-old female presents today for 6 week postoperative appointment status post right total knee arthroplasty performed on 12/15/2016. Since patient was last seen, she denies any pain complaints. Patient does have numbness to the lateral side of the knee that she states is mild. She also states that numbness is gradually improving but at a slow pace. She is now walking independently but states that she still keeps her single-point cane with her because at times she feels "weakness" to the knee and feels that she needs assisted ambulatory device. Denies any falls since she was last seen. Denies any chest pain, shortness of breath or calf pain. Patient is very pleased status post surgery and continues to progress. She is currently doing outpatient physical therapy which is going well. Review of Systems Const: No Fever, no chills, no Fatigue, normal appetite, no diaphoresis. Resp: No SOB, no wheezing, no chest pain. CV: No chest pain, no palpitaions, no RODRIGUEZ. Physical Exam Blood pressure is 109/55, temperature is 98.8, pulse is 70, respiratory rate is 12, height is 5 feet 2 inches, weight is 220 pounds. General Appearance: well-developed, well-nourished, in no acute distress. Right knee: Well-healed scarring to the anterior right knee. No tenderness to palpation on exam. Patient is able to actively extend with 5 lag from full extension and actively flex up to 110. Normal sensory examination to light touch outside of lateral compartment of the knee which she experiences light numbness just lateral to incision. Negative Homans sign/no calf pain. Patient is able to walk independently although she does have single-point cane today. 5 /5 strength on resistance with flexion and extension. X-ray of the right knee performed on 02/01/2017 showing all components appearing well aligned, attached and integrated to the bone. No signs of any lucency between metal and bone. Allergies Coded Allergies: No Known Allergies (Verified Allergy, Mild, 08/25/16) Assessment/Plan -Patient progressing well -Surgical wound continues to heal well. -No signs of infection or DVT on exam. -X-rays showing no abnormalities in regards to prosthesis attachment to bone. -Range of motion is improved status post total knee replacement. -Antibiotic prophylaxis card provided at previous appointment. -Follow-up 6 months status post surgery. If patient is doing well at that time , possible follow-up on as-needed basis from that point. Dental prophylaxis discussed in detail today. Patient given prophylaxis card with antibiotic options. Should patient have allergy to specific medication ( eg penicillin) alternative options are also provided on the card. Patient is aware that antibiotics should be taken prior to any procedures to prevent increased risk of infection to the joint. Patient is aware that this will be for the rest of their life. Patient states understanding and compliance. Medications Home Meds Reported Medications Acetazolamide* (Acetazolamide*) 250 Mg Tablet, 250 MG PO QID, #90 TAB 08/25/16 [meds for blister] No Conflict Check 03/10/15 YANI BENITEZ PA-C Feb 01, 2017 15:05
--- NOTE | 2017-02-01 16:39 | RADRPT ---
PROCEDURE: XR right knee. CLINICAL INDICATION: Knee pain. TECHNIQUE: AP weightbearing, lateral weightbearing and sunrise views are available for review. COMPARISON: 12/15/2016 FINDINGS: There is a constrained total knee replacement. There is no evidence of loosening of the prosthesis. There is no evidence of hardware failure. The osseous structures are normal in mineralization, archi tecture and alignment No acute fracture or dislocation is seen.No osseous lesions are identified. T he soft tissues are unremarkable . IMPRESSION: Unremarkable constrained total knee replacement. RPTAT: HGDB .Tex Day MD, MD Date Time Electronically viewed and signed by .Tex Day MD, on 02/01/2017 16:39 .B/
== END | disposition home or self-care (01) ==
LOC: HKI 13:45
DX: Z47.1 Aftercare following joint replacement surgery (principal); Z96.651 Presence of right artificial knee joint; R20.0 Anesthesia of skin

== ENCOUNTER → 2017-04-19 | Outpatient (CLI) | payer MEDICARE, BC ==
--- NOTE | 2017-04-19 15:26 | PN ---
Date/Time of Note Date/Time of Note DATE: 04/19/17 TIME: 15:20 Outpatient Progress Note Chief Complaint Follow-up status post right knee replacement HPI 57-year-old female presents today for follow-up status post right total knee replacement performed on 12/15/2016. Patient continues with pain to the right knee. She states that she is using single-point cane for assisted ambulation. Denies any falls or injury but does have stiffness. Patient also continues with aching primarily to the medial side of the knee. Patient is currently undergoing physical therapy but when asked, she states that she started physical therapy about 2 months after surgery. Initially, patient was doing well with flexion at about 110 but now flexion is about 90 with no ability to further flex from this point. Active Homans sign. No calf pain. Near full range of motion with extension. Review of Systems Const: No Fever, no chills, no Fatigue, normal appetite, no diaphoresis. Resp: No SOB, no wheezing, no chest pain. CV: No chest pain, no palpitaions, no RODRIGUEZ. Physical Exam Blood pressure is 124/58, temperature is 98.5, pulse is 71, respiratory rate is 12, height is 5 foot 2 inches, weight is 215 pounds General Appearance: well-developed, well-nourished, in no acute distress. Right knee: Well-healed scarring to the right knee. Patient is able to fully extend the knee. Flexion at about 90 with discomfort. No tenderness to palpation at rest. Normal sensory examination to light touch. Antalgic gait with assisted ambulation using single-point cane. Imaging X-ray of the right knee performed on 04/19/2017 showing all components appearing well aligned, attached and integrated to the bone. No signs of any lucency between metal and bone. Allergies Coded Allergies: No Known Allergies (Verified Allergy, Mild, 08/25/16) Assessment/Plan * Currently having maximum of 90 flexion. Likely due to increased scarring. * Patient did not start physical therapy until 2 months after surgery which could have attributed to ongoing scarring and limited range of motion. * Patient is also been seen by Dr. Valladares who recommends manipulation under anesthesia of the right knee to improve range of motion. * Patient will call into revenue director to arrange a time for manipulation under anesthesia. * Patient will also reinitiate physical therapy after procedure is performed to improve range of motion. * Continue with [place] 5/325 mg for pain. Patient will be restarted on [place] 10/ 325 mg after procedure especially prior to initiating physical therapy so that she is able to perform the activities. * Follow-up for preoperative examination. Dr. Valladares was present for examination and agrees with plan. Medications Home Meds Reported Medications Acetazolamide* (Acetazolamide*) 250 Mg Tablet, 250 MG PO QID, #90 TAB 08/25/16 [meds for blister] No Conflict Check 03/10/15 YANI BENITEZ PA-C Apr 19, 2017 15:26
--- NOTE | 2017-04-19 18:25 | RADRPT ---
PROCEDURE: Right knee radiographs. CLINICAL INDICATION: Right knee pain. Postop. TECHNIQUE: Three views. Weight bearing. Frontal, lateral, and patellar view. COMPARISON: 02/01/2017. FINDINGS: There is no fracture or dislocation. There is a probable joint effusion. There is a total right knee constrained arthroplasty which appears satisfactory. There is no lytic or blastic lesion. IMPRESSION: 1. Probable joint effusion. 2. Total right knee constrained arthroplasty. RPTAT: QQ .Nba Ocampo MD, Date Time Electronically viewed and signed by .Nba Ocampo MD, on 04/19/2017 18:25 .R/
== END | disposition home or self-care (01) ==
LOC: HKI 14:28
DX: Z47.1 Aftercare following joint replacement surgery (principal); Z96.651 Presence of right artificial knee joint; M25.561 Pain in right knee
CPT/HCPCS: 73562; G0463

== ENCOUNTER → 2017-05-02 | Outpatient (CLI) | payer MEDICARE, BC ==
--- NOTE | 2017-05-11 07:06 | HKNOTE ---
DATE OF SERVICE: 05/02/2017 She comes in for a preoperative evaluation. Scheduled for manipulation of the right under general anesthetic on 05/03/2017. She by Dr. Ismael Dowling. Numerous questions were asked and answered. She was advised of possible complications including fracture of bone or rupture of tendon or ligament. The postoperative course was discussed with her. She was given a prescription for postoperative pain medications. Dictated By: Martin Valladares MD /tessa/thanh /Document#: [id number]
== END | disposition home or self-care (01) ==
LOC: HKI 13:40
DX: Z01.818 Encounter for other preprocedural examination (principal)
CPT/HCPCS: G0463

== ENCOUNTER 2017-05-03 05:25 | Day surgery (SDC) | payer MEDICARE, BC ==
[2017-05-03] VITALS (7 sets, daily range): BP systolic 119–140; BP diastolic 58–65; PULSE 72–100; RESP 14–18; Ht 157.5 cm; Wt 97.4 kg
[~2017-05-03] VITALS: Ht 157.5 cm; Wt 97.4 kg
[2017-05-03] MEDS ORDERED: CELECOXIB 200 MG CAP PO ONE (06:00)
[2017-05-03] MEDS ORDERED: LANSOPRAZOLE 30 MG CAP PO ONE (06:00)
[2017-05-03] MEDS ORDERED: LACTATED RINGER'S 1,000 ML IV* SCH (06:00)
[2017-05-03] MEDS ORDERED: ONDANSETRON 4 MG INJ IV ONE (06:00)
[2017-05-03] MEDS ORDERED: VANCOMYCIN 1 GM (PMX) 250 ML IVPB ONE (06:00)
[2017-05-03] MEDS ORDERED: ACETAMINOPHEN 1000MG/100ML IV 100 ML IVPB ONE (06:00)
[2017-05-03] MEDS ORDERED: DEXAMETHASONE 4 MG/ML 1 ML INJ IV ONE (06:00)
[2017-05-03] MEDS ORDERED: oxyCODONE (CR) 10 MG TAB [oxyCONTIN] PO ONE (06:00)
[2017-05-03] MEDS ORDERED: BUPIVACAINE 0.25%/EPI (SDV) 30 ML INJ ONE (06:52)
--- NOTE | 2017-05-03 06:58 | HPN ---
Date/Time of Note Date/Time of Note DATE: 05/03/17 TIME: 06:58 Interval H&P Admission Note Pt. seen H&P reviewed: No system changes YANI BENITEZ PA-C May 03, 2017 06:58
[2017-05-03] MEDS ORDERED: SUCCINYLCHOLINE CHLORIDE 100 MG/5 ML SYG IV ONE (07:00)
[2017-05-03] MEDS ORDERED: PROPOFOL 20 ML ONE (07:14)
[2017-05-03] MEDS ORDERED: ONDANSETRON 4 MG INJ ONE (07:14)
[2017-05-03] MEDS ORDERED: FENTAnyl 50 MCG/ML VIAL ONE (07:14)
[2017-05-03] MEDS ORDERED: ROCURONIUM 50 MG INJ ONE (07:14)
[2017-05-03] MEDS ORDERED: DEXAMETHASONE 4 MG/ML 1 ML INJ ONE (07:14)
[2017-05-03] MEDS ORDERED: MIDAZOLAM 1 MG/ML 2 ML INJ ONE (07:14)
[2017-05-03] MEDS ORDERED: LIDOCAINE 100 MG SYRINGE ONE (07:14)
[2017-05-03] MEDS ORDERED: ONDANSETRON 4 MG INJ IV PRN (08:00)
[2017-05-03] MEDS ORDERED: ACETAMINOPHEN 1000MG/100ML IV 100 ML IVPB SCH (08:00)
--- NOTE | 2017-05-08 06:06 | OPR ---
DATE OF OPERATION: 05/03/2017 SURGEON: Martin Valladares MD PASSENGER ELEVATOR OPERATOR: Marii Rodgers PA-C PREOPERATIVE DIAGNOSIS: Stiff right knee following total knee replacement. POSTOPERATIVE DIAGNOSIS: Stiff right knee following total knee replacement. PROCEDURE PERFORMED: Manipulation of right knee under general anesthetic. FINDINGS AT SURGERY: The patient's knee was found to extend fully, but flexed to 90 degrees. There was marked resistance to any further flexion at 90 degrees. After the manipulation, the knee had full extension and flexion was completely full (130 degrees). DESCRIPTION OF PROCEDURE: Under general anesthetic, with total muscle paralysis using succinylcholine, the knee was first prepped and injected with 10 cc of Marcaine with adrenaline. The knee was then manipulated with a stethoscope applied to the knee. Further manipulation was discontinued once full flexion was obtained and there was no more crepitus heard on the stethoscope. An Paras bandage was applied and ice bag was applied. She was returned to the recovery room in stable condition. There were no problems or complications. Dictated By: Martin Valladares MD /tessa/katie /Document#: [id number]
--- NOTE | 2017-05-08 10:28 | PREOPHP ---
DATE OF ADMISSION: 05/02/2017 CHIEF COMPLAINT: Pain in the right knee with decreased range of motion. HISTORY OF PRESENT ILLNESS: The patient had ain in her right knee intermittently for several years. She had arthroscopic surgery on her right knee in February 2012. She had relief of her pain for a while, but then it recurred. The patient was then readmitted for arthroscopic surgery once again in August of 2016. Once again there was improvement for a while, but then again the knee became stiff. The patient now is being admitted for manipulation of the right knee under general anesthesia in an attempt to regain some more range of motion. The patient presents to the hospital at this time for this procedure. For Past History, Review of Systems, etc, etc, please see previous chart dated 08/25/2016. . FAMILY HISTORY: Noncontributory. CURRENT MEDICATIONS: None on a regular basis. ALLERGIES: NO KNOWN DRUG ALLERGIES. PHYSICAL EXAMINATION: GENERAL: The patient is a well-developed, terra female who does not appear acutely or chronically ill but appears to be in pain. VITAL SIGNS: Blood pressure 142/84, pulse 80, respirations 16, temperature 98.6. SKIN: No evidence of dermatitis. NECK: Supple. Thyroid is not palpable. EYES: PERRLA, EM normal, discs flat. Thyroid on close vision is grossly intact. EARS, NOSE, AND THROAT: Clear. HEART: PMI in the left midclavicular line. No murmurs. No thrills, no bruits. 2 is greater than P2. No distention of jugular veins. No ankle edema. and reflexes not present. CHEST: Clear to A\T\P. ABDOMEN: Liver, kidney, and spleen are not palpable. Bowel sounds are normal. There re no intraabdominal masses or bruits. GENITOURINARY: Normal female external genitalia. PELVIC: Deferred. The patient had a pelvic examination several months ago with negative result. RECTAL: Deferred for the same reason. MUSCULOSKELETAL: Pain and tenderness in the right knee with decreased range of motion. Some crepitus on flexion and extension of the right knee. No other evidence of musculoskeletal disorder. NEUROLOGIC: DTRs are normal and equal bilaterally, including biceps, triceps, wrist, knees, ankles, plantars or flexors, and no pathological reflexes are present. The patient is alert and oriented to time, place, and person. PERIPHEROVASCULAR: No carotid or subclavian or bruits. Femoral and dorsal pedal pulses are normal and equal bilaterally. IMPRESSION: 1. Scar tissue, right knee, from previous surgery. 2. Osteoarthritis, right knee. 3. Obesity. 4. History of anemia. 5. Elevated sedimentation rate. 6. Elevated creatinine. 7. Urinary stress incontinence. Dictated By: Ismael Nye MD /tessa/jasvir /Document#: [id number]
== END 2017-05-03 09:13 | disposition home or self-care (01) ==
LOC: SDS 05:25
DX: M25.661 Stiffness of right knee, not elsewhere classified (principal)
CPT/HCPCS: 27570; J0131; J1100; J2001; J2250; J2405; J3010; J3370; J7120; J7999

== ENCOUNTER → 2017-05-17 | Outpatient (CLI) | payer MEDICARE, BC ==
--- NOTE | 2017-05-17 14:26 | PN ---
Date/Time of Note Date/Time of Note DATE: 05/17/17 TIME: 14:21 Outpatient Progress Note Chief Complaint Follow-up after manipulation under anesthesia to the right knee HPI 57-year-old female status post right total knee replacement on 12/15/2016 followed by right knee manipulation under anesthesia performed on 05/03/2017 presents today for repeat evaluation. Patient continues with significant pain to the right knee she states is more exacerbated with extension rather than flexion. She continues with pain and stiffness with flexion as well. Continues at home exercises. Patient is scheduled to initiate outpatient physical therapy tomorrow. Denies any fall or injury. Patient continues using single-point cane for assisted ambulation. Denies any chest pain/tightness. Denies any calf pain or shortness of breath. Review of Systems Const: No Fever, no chills, no Fatigue, normal appetite, no diaphoresis. Resp: No SOB, no wheezing, no chest pain. CV: No chest pain, no palpitaions, no RODRIGUEZ. Physical Exam Blood pressure is 127/59, temperature is 98.2, pulse is 84, respiratory rate is 12, height is 5 foot 2 inches, weight is 215 pounds General Appearance: well-developed, well-nourished, in no acute distress. Right knee: Well-healed surgical scarring. Orbitally obese in stature. While lying down patient is able to actively flex up to 100. Patient is able to achieve full extension. Pain and discomfort with range of motion. Stiffness with range of motion. Normal sensory examination to light touch. Allergies Coded Allergies: No Known Allergies (Verified Allergy, Mild, 05/03/17) Assessment/Plan * Patient also has complaints of myalgias and tingling sensations that can occur on occasion. Dr. Valladares was present for exam and recommends gabapentin 100 mg twice daily #60 which was provided for patient today. * Refill of [place] 10/325 mg 1 tab p.o. every 4-6 hours as needed severe pain # 45 tablets also written out for patient today. * Continue with at home exercises. * Continue with physical therapy * Follow-up in 3-4 months, per recommendation of Dr. Valladares for repeat evaluation. She may return sooner if there is any issue. Dr. Valladares was present for examination and agrees with plan. Medications Home Meds Reported Medications Acetazolamide* (Acetazolamide*) 250 Mg Tablet, 250 MG PO QID, #90 TAB 08/25/16 [meds for blister] No Conflict Check 03/10/15 YANI BENITEZ PA-C May 17, 2017 14:26
== END | disposition home or self-care (01) ==
LOC: HKI 13:55
DX: M25.561 Pain in right knee (principal)

== ENCOUNTER → 2017-07-04 | Outpatient (CLI) | payer MEDICARE, BC ==
--- NOTE | 2017-07-04 15:25 | RADRPT ---
PROCEDURE: XR Knees. CLINICAL INDICATION: Bilateral knee pain. TECHNIQUE: Total of six views. Frontal, oblique, and lateral views of both knees. COMPARISON: Right knee radiographs dated 04/19/2017. FINDINGS: On the right side, there is a total knee arthroplasty which appears satisfactory. There is no fractu re, dislocation, or loosening. On the left side, there are mild degenerative changes with osteophytes arising from all 3 joint comp artment margins. There is no fracture or dislocation. There is no lytic or blastic lesion of the side. IMPRESSION: 1. Satisfactory postoperative appearance of the right knee. 2. Mild degenerative change of the left knee. RPTAT: QQ .Nba Ocampo MD, MD Date Time Electronically viewed and signed by .Nba Ocampo MD, on 07/04/2017 15:25 .R/
--- NOTE | 2017-07-05 03:55 | HKNOTE ---
DATE OF SERVICE: 07/04/2017 MAIN COMPLAINT: Pain in the right knee. HISTORY OF MAIN COMPLAINT: The patient is a 57-year-old female, who underwent a right knee replacement performed by me on 05/03/2017. The knee was stiff postoperatively, and she required manipulation of the knee under general anesthetic on 12/15/2016. Range of motion in the knee improved with the manipulation, but she had increased pain after manipulation, which has not yet resolved. She is taking [place] for pain. She takes 2 a day, but she feels that is not enough. She can walk less than a block without stopping, using a cane. She gets pain in the knee with every step. PHYSICAL EXAMINATION: GENERAL: A fit-looking, 57-year-old female. RIGHT KNEE EXAMINATION: No external sign of infection or inflammation. Extension is full. Flexion is to 105 degrees (pain on forced flexion). No swelling. Some tenderness over the medial tibial plateau. IMAGING: Plain x-rays of the right knee obtained today seem to indicate that the tibial component may have moved from its initial postoperative position, suggesting that there is subsidence of the medial side on elevation of the lateral side of the tibial component. DIAGNOSIS: Possible loose tibial component of right total knee replacement. MANAGEMENT: 1. The patient is being sent for CBC, sed rate, and C-reactive protein. 2. An MARS CT scan of the right knee will be obtained. 3. She will be seen by me again in 1 week's time for further evaluation. Dictated By: Martin Valladares MD /tessa/rachel /Document#: [id number]
== END | disposition home or self-care (01) ==
LOC: HKI 14:37
DX: M25.561 Pain in right knee (principal); Z96.651 Presence of right artificial knee joint

== ENCOUNTER → 2017-07-26 | Outpatient (CLI) | payer MEDICARE, BC ==
--- NOTE | 2017-07-27 09:24 | HKNOTE ---
DATE OF SERVICE: 07/26/2017 MAIN COMPLAINT: Pain in the right knee. HISTORY OF MAIN COMPLAINT: The patient is a 57-year-old female who underwent a right total knee rep lacement on 12/15/2016. Her knee was stiff after the surgery, but she had no pain in it whatsoever. Manipulation of the knee was performed on 05/03/2017. Improvement of the range of motion was obtai yehuda at surgery. Pre-manipulation flexion is 90 degrees. Post-manipulation flexion was 130 degrees. Patient has had pain in the knee since that manipulation. She has not had any recent infections. She has been off work since 09/2012 when she had an arthrosc opic operation on the knee. Note that at knee replacement surgery, the quality of the bone is not mentioned. X-rays of her right knee obtained on 07/04/2017 at the [facility] showed that there had been so me displacement of the tibial baseplate since the immediate postoperative x-rays of her right knee r eplacement. The patient was sent for a [place] CAT scan of the right knee. At the same time, lab work was ordered. The CBC obtained on 07/04/2017 was reported as sedimentation rate 51, white cell count 6.6. C-react jami protein 17.7. A CAT scan of the right knee obtained on 07/10/[address] Lloyd as showing "finding s consistent with tibial prosthetic loosening". Laterally there is a thin lucency between cement kyleigh ne interface. The plain x-rays obtained at the last visit did not show any loosening of the femoral component or knee patellar component. MANAGEMENT: 1. Repeat CBC and sed rate and C-reactive protein today. 2. Under sterile conditions, the right knee was aspirated of clear yellow fluid which is being sent for cell count, culture and sensitivity. 3. Note that on aspirating the knee, 5 mL given lidocaine was injected into the knee. Thereafter, she had no pain on weightbearing in the knee. 4. The patient is advised that she will need to have knee tibial component revised with a longer st em. The procedure and possible complications were discussed with her in a fair amount of detail. Possib le postoperative complications including infection were discussed. Patient understands that I recently stopped operating and I will request that one of my associates, Dr. Hung Mata perform the procedure. The lab work will be reviewed next week. If any abnormalities appear, they will be discussed with t he patient by telephone. Dictated By: ROSETTA HEADLEY/ELOISE Conf#: [id number] DID#: [id number]
== END | disposition home or self-care (01) ==
LOC: HKI 11:02
DX: M25.561 Pain in right knee (principal); Z96.651 Presence of right artificial knee joint
CPT/HCPCS: 20610

== ENCOUNTER → 2017-09-27 | Outpatient (CLI) | END | disposition home or self-care (01) ==

== ENCOUNTER 2017-10-11 09:39 | Inpatient (IN) | END 2017-10-13 21:35 | DRG 941 ==

== ENCOUNTER 2017-10-13 22:46 | Inpatient (IN) | END 2017-10-21 14:00 | disposition home health service (06) | DRG 560 ==

== ENCOUNTER → 2017-10-25 | Outpatient (CLI) | END | disposition home or self-care (01) ==

== ENCOUNTER → 2017-11-29 | Outpatient (CLI) | END | disposition home or self-care (01) ==

== ENCOUNTER → 2018-02-26 | Outpatient (CLI) | END | disposition home or self-care (01) ==

== ENCOUNTER → 2018-06-04 | Outpatient (CLI) | END | disposition home or self-care (01) ==

== ENCOUNTER → 2018-11-28 | Outpatient (CLI) | payer MEDICARE, BC ==
[~2018-11-28] MED LIST changes: -ACET250T22 PO; +HYDR-3980 PO; -[UNRECOGNIZED DRUG - REMARK]
--- NOTE | 2018-11-28 20:11 | PN ---
DATE: 11/28/2018 HISTORY OF PRESENT ILLNESS: This is a pleasant 58-year-old female with a history of a right knee art hroplasty revision by Dr. Haddad about 1 year ago. The patient states overall she is doing better, although she does have some pain of the right knee. She says with the weather changes getting a zoey le bit colder. No fevers, no chills, no recent traumas. She does not need pain medication regularly , but does take it for exacerbations. PHYSICAL EXAMINATION: GENERAL: The patient is well-developed, well-nourished, in no acute distress. MUSCULOSKELETAL: Her right lower extremity has a well-healed surgical scar on the anterior knee. Sh e has no edema, no erythema, no discharge. She does have tenderness at the pes anserine and also mee ng the IT band, but range of motion is full without pain and no laxity on valgus or varus stress. No mid flexion instability. She is neurovascularly intact. DIAGNOSTIC DATA: Images were compared to 11/2017 to 05/2018 and also from today. No obvious looseni ng of the hardware. No fracture. Everything appears to be stable. ASSESSMENT: A 58-year-old female with right total knee arthroplasty revision about 1 year out now wi th some iliotibial band syndrome and pes anserine bursitis. PLAN: Physical therapy twice a week for [address] Mederos refilled the [place] 5/325 to be used sheila y sparingly. She can ice her knee. Continue home exercise program as well. Weightbear as tolerated and we will see her back in 3 months or sooner if problems arise. Dictated By: ROSALINDA MAN PA-C for MEHUL LUTZ/ELOISE Conf#: [id number] DID#: [id number]
--- NOTE | 2018-11-29 16:23 | RADRPT ---
PROCEDURE: XR Knee. CLINICAL INDICATION: PAIN TECHNIQUE: AP and lateral views of the right knee were obtained. The images reviewed on a PACS work station. COMPARISON: KNEE 06/04/2018; VIKTORIYA KNEE 04/19/2017 FINDINGS: Right knee total arthroplasty with long stem femoral component appears intact and stable in alignment compared to prior exam. No periprosthetic fracture. Small joint effusion. Diffuse osteopenia. IMPRESSION: Right knee total arthroplasty appears stable compared to prior exam. Small joint effusion. RPTAT:AAJJ Physician Morena Date Time Electronically viewed and signed by Physician Morena on 11/29/2018 16:23 RF/
== END | disposition home or self-care (01) ==
LOC: HKI 09:01
PROVIDERS: ATTEND Orthopaedic Surgery
DX: M70.61 Trochanteric bursitis, right hip (principal); Z96.651 Presence of right artificial knee joint
CPT/HCPCS: 73560; G0463